=== PATIENT | female | born 1960 | race African-American/Black ===

== ENCOUNTER 2016-11-19 03:35 | Emergency (ER) | payer OTHER, MEDICAID ==
[2016-11-19 07:50] VITALS: BP 159/89
== END 2016-11-19 07:50 ==
LOC: ED 03:35
DX: J44.1 Chronic obstructive pulmonary disease with (acute) exacerbation (principal); J18.0 Bronchopneumonia, unspecified organism; R45.850 Homicidal ideations; G89.29 Other chronic pain; R10.2 Pelvic and perineal pain; F99 Mental disorder, not otherwise specified; E11.9 Type 2 diabetes mellitus without complications; J45.909 Unspecified asthma, uncomplicated; F17.210 Nicotine dependence, cigarettes, uncomplicated; Z79.899 Other long term (current) drug therapy; Z79.84 Long term (current) use of oral hypoglycemic drugs
CPT/HCPCS: J0696; J1885; J2405; J2930; J7613; J7644; Q0092

== ENCOUNTER 2016-11-19 18:43 | Emergency (ER) | payer OTHER, MEDICAID ==
[~2016-11-19] VITALS: Ht 175.3 cm; Wt 127.0 kg
[2016-11-19 22:05] VITALS: BP 143/84
== END 2016-11-19 22:05 ==
LOC: ED 18:43
DX: J44.9 Chronic obstructive pulmonary disease, unspecified (principal); F41.0 Panic disorder [episodic paroxysmal anxiety]; I10 Essential (primary) hypertension; E11.9 Type 2 diabetes mellitus without complications; Z79.84 Long term (current) use of oral hypoglycemic drugs; Z79.899 Other long term (current) drug therapy
CPT/HCPCS: J7613

== ENCOUNTER 2016-11-23 00:07 | Emergency (ER) | payer OTHER, MEDICAID ==
[~2016-11-23] VITALS: Ht 175.3 cm; Wt 117.9 kg
[2016-11-23 01:23] LABS: CALCIUM 9.2 mg/dL (8.5-10.1); CARBON DIOXIDE 27.6 mmol/L (21-32); CHLORIDE SERUM 100 mmol/L (98-107); GFR1 > 60 mL/min; GLUCOSE SERUM 377 mg/dL (74-106); POTASSIUM SERUM 4.2 mmol/L (3.5-5.1); SODIUM SERUM 139 mmol/L (136-145)
[2016-11-23 01:28] LABS: ALBUMIN 3.3 g/dL (3.4-5.0); ALKALINE PHOSPHATASE 94 U/L (46-116); ALT/SGPT 29 U/L (14-59); AST/SGOT 7 U/L (15-37); BILIRUBIN TOTAL 0.12 mg/dL (0.20-1.00); TOTAL PROTEIN, SERUM 7.3 g/dL (6.4-8.2)
[2016-11-23 01:29] LABS: PLATELET COUNT 171 x10^3mcL (130-400)
[2016-11-23 02:06] LABS: SEGMENTED NEUTROPHILS 60 % (37-75)
[2016-11-23 02:07] LABS: PLATELET MORPHOLOGY PLATELETS NORMAL; rbc morphology (normal/abnorm) NORMAL (NORMAL)
[2016-11-23 04:08] VITALS: BP 127/78
== END 2016-11-23 03:40 ==
LOC: ED 00:07
PROVIDERS: Emergency Medicine
DX: R07.89 Other chest pain (principal); J44.9 Chronic obstructive pulmonary disease, unspecified; I10 Essential (primary) hypertension; E11.65 Type 2 diabetes mellitus with hyperglycemia
CPT/HCPCS: 36415; 83880; J7620